=== PATIENT | male | born 2000 | race Asian ===

== ENCOUNTER 2021-08-27 11:07 | Emergency (ER) | payer BC ==
[2021-08-27 11:36] LABS: Bilirubin Negative (Negative); Blood, Urine Negative (Negative); Clarity Clear (Clear); Glucose, Urine (Dipstick) Normal (Negative); Ketone, Urine Negative (Negative); Leukocyte Negative Leu/uL (Negative); Nitrite Negative (Negative); Protein, Urine (Dipstick) Negative (Neg-Trace); Specific Gravity, Urine 1.025 (1.002-1.036); Urobilinogen Normal mg/dL (Less than 2); pH, Urine 5.5 (5.0-9.0)
== END 2021-08-27 12:38 | disposition home or self-care (01) ==
LOC: ERS 11:07
DX: N50.811 Right testicular pain (principal); F17.290 Nicotine dependence, other tobacco product, uncomplicated
CPT/HCPCS: 76870; 81003; 93976